=== PATIENT | female | born 1990 | race Two or more races ===

== ENCOUNTER 2018-02-01 21:47 | Emergency (ER) | payer BC ==
[~2018-02-01] VITALS: Ht 160 cm; Wt 119.7 kg
[2018-02-01] MEDS ORDERED: LIDOCAINE HCL/PF 1% 30 ML SDV ONE (22:53)
[2018-02-01] MEDS ORDERED: TDAP [DIPH/PERTUSSIS/TET] 0.5 ML VIAL IM ONE ×2 (22:54→23:00)
--- NOTE | 2018-02-02 00:15 | NUR ---
SUTURING IN PROGRESS AT THE BEDSIDE.
[2018-02-02] MEDS ORDERED: CEPHALEXIN MONOHYDRATE 500 MG CAPSULE PO ONE ×2 (00:30)
[2018-02-02] MEDS ORDERED: SULFAMETH/TRIMETH 800/160 MG 1 UDTAB TABLET PO ONE ×2 (00:30)
[2018-02-02 00:40] VITALS: BP 132/87
--- NOTE | 2018-02-02 00:41 | NUR ---
PT REC'D A COLLE'S SPLINT TO ELVIN Cisneros/ MANUELA AND YASH BANDAGE.
== END 2018-02-02 00:44 | disposition home or self-care (01) ==
LOC: ER 21:48
DX: S61.411A Laceration without foreign body of right hand, initial encounter (principal); S61.011A Laceration without foreign body of right thumb without damage to nail, initial encounter; W25.XXXA Contact with sharp glass, initial encounter; Y93.89 Activity, other specified; Y92.89 Other specified places as the place of occurrence of the external cause; Y99.8 Other external cause status
CPT/HCPCS: 12002; 73130; 90471; 90715; 99283; A4606; A6402 ×2; J3490; L3763; Z7610